=== PATIENT | male | born 1945 | race Caucasian/White ===

== ENCOUNTER 2018-08-15 10:47 | Emergency (ER) | payer OTHER, MEDICARE ==
[~2018-08-15] VITALS: Ht 188 cm; Wt 95.3 kg
[~2018-08-15 10:47] MED LIST: ALLOPURINOL 10100 M1 PO; ALTACE 1.25 M1.25 M1 PO; BYSTOLIC 5 MG5 M1 PO; CITRACIL PO; CITRUCEL CAPLET1 TA1 PO; CRESTOR40 MG PO; FISH OIL 1,0001 EAC5 PO; MAGNESIUM100 MG PO; MULTIVITAMINS PO; PROTONIX 20 MG20 M1 PO; RAMIPRIL PO; VITAMIN C 250250 MG PO; VITAMIN D400 UNI1 PO
[2018-08-15 11:09] VITALS: BP 138/77
[2018-08-15 12:12] LABS: MCV 103.2 fL (80.0-100.0); RDW 16.5 % (10.5-14.5)
[2018-08-15 12:14] LABS: HEMATOCRIT 28.9 % (42.0-52.0); HEMOGLOBIN 9.7 gm/dL (14.0-18.0); MCH 34.7 pg (26.0-34.0); MCHC 33.6 g/dL (28.0-37.0); WBC 22.3 thou/uL (4.0-11.0)
[2018-08-15 12:21] LABS: ANION GAP 12 mmol/L (7-16); BUN 31 mg/dL (7-18); CALCIUM 9.1 mg/dL (8.5-10.1); CHLORIDE 104 mmol/L (98-107); CO2 24 mmol/L (21-32); CREATININE 2.1 mg/dL (0.7-1.3); GLUCOSE 153 mg/dL (74-106); POTASSIUM 4.1 mmol/L (3.5-5.1); SODIUM 140 mmol/L (136-145)
[2018-08-15 12:29] LABS: TROPONIN-I <0.06 ng/mL (<0.06)
[2018-08-15 13:44] LABS: ABSOLUTE NEUTROPHILS 12.5 thou/uL (1.4-8.2); METAMYELOCYTES 5 %
[2018-08-15 13:45] LABS: ANISOCYTOSIS 1+
[2018-08-15 13:46] LABS: LARGE PLATELETS RARE; MACROCYTES 1+; PLATELET COUNT 35 thou/uL (150-400)
[2018-08-15 17:21] VITALS: BP 148/86
--- NOTE | 2018-08-15 18:31 | EKG ---
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1945 Requested By: Dane Almazan Order Number: [id number] MD: Luke Banuelos Measurements Intervals [place] Rate: 93 P: 59 NM: 181 QRS: -49 QRSD: 147 T: 25 QT: 403 QTc: 502 Interpretive Statements Sinus rhythm Right bundle branch block Inferior infarct, old Compared to ECG 11/24/2000 06:46:49 heart rate is faster Electronically Signed On 08-15-2018 18:30:57 CLASSROOM COORDINATOR by Luke Banuelos [email or web address] ��������������������������������������������� <ELECTRONICALLY SIGNED> ���������������������������������������� By: Luke Banuelos MD ��������������������������������������������� 08/15/18 1830 1054 105 Luke Banuelos MD /EPI
[2018-08-16 14:08] LABS: HEMOGLOBIN 9.4 g/dL (13.0-17.7)
[2018-08-19 06:11] LABS: HEMATOLOGY COMMENTS Note: (())
== END 2018-08-15 17:37 | disposition home or self-care (01) ==
LOC: ER 10:47 → EROBS 14:00 → ER 17:37
PROVIDERS: Emergency Medicine
DX: D46.9 Myelodysplastic syndrome, unspecified (principal); N17.9 Acute kidney failure, unspecified; E78.00 Pure hypercholesterolemia, unspecified; I10 Essential (primary) hypertension; K21.9 Gastro-esophageal reflux disease without esophagitis; M10.9 Gout, unspecified